=== PATIENT | male | born 1980 | race African-American/Black ===

== ENCOUNTER 2017-09-12 11:43 | Emergency (ER) | payer SELFPAY ==
[2017-09-12 11:53] VITALS: BP 123/73
[2017-09-12] MEDS ORDERED: NORMAL SALINE 1000 ML 1,000 ML IV ONE (12:09)
[2017-09-12] MEDS ORDERED: ONDANSETRON HCL INJ/PF 4 MG/2 ML SDV IV ONE (12:09)
--- NOTE | 2017-09-12 12:11 | ER Document Report ---
ED Medical Screen (RME) - General Chief Complaint: Vomiting Stated Complaint: VOMITING Time Seen by Provider: 09/12/17 12:08 Mode of Arrival: Ambulatory Information source: Patient TRAVEL OUTSIDE OF THE [place] IN LAST 30 DAYS: No - HPI Patient complains to provider of: N/V/D Onset: Yesterday - Pt states child has been sick with gastroenteritis and he recently has started with N/V/D. He states he is unable to keep down food/ fluids - Related Data Allergies/Adverse Reactions: sulfamethoxazole [From Bactrim] Allergy (Verified 09/12/17 11:52) trimethoprim [From Bactrim] Allergy (Verified 09/12/17 11:52) Past Medical History - Social History Chew tobacco use (# tins/day): No Frequency of alcohol use: None Drug Abuse: None - Past Medical History Cardiac Medical History: Reports: Hx Hypertension Endocrine Medical History: Reports: Hx Diabetes Mellitus Type 2 Renal/ Medical History: Denies: Hx Peritoneal Dialysis - Immunizations Immunizations up to date: Yes Hx Diphtheria, Pertussis, Tetanus Vaccination: Yes Physical Exam - Vital signs Vitals: Temp Pulse Resp BP Pulse Ox 98.0 F 74 20 123/73 100 09/12/17 11:52 09/12/17 11:52 09/12/17 11:52 09/12/17 11:52 09/12/17 11:52 Course - Vital Signs Vital signs: Temp Pulse Resp BP Pulse Ox 98.0 F 74 20 123/73 100 09/12/17 11:52 09/12/17 11:52 09/12/17 11:52 09/12/17 11:52 09/12/17 11:52
[2017-09-12 12:28] LABS: ABSOLUTE EOSINOPHILS # (AUTO) 0.1 10^3/uL (0.0-0.6); ABSOLUTE LYMPHOCYTES (AUTO) 1.5 10^3/uL (0.5-4.7); ABSOLUTE MONOCYTES (AUTO) 0.4 10^3/uL (0.1-1.4); ABSOLUTE NEUT (AUTO) 1.6 10^3/uL (1.7-8.2); BASOPHILS % (AUTO) 0.6 % (0-2); EOSINOPHILS % (AUTO) 1.9 % (0-6); HEMATOCRIT 41.1 % (37.9-51.0); HEMOGLOBIN 14.4 g/dL (13.5-17.0); HGB HCT DIFFERENCE 2.1; LYMPHOCYTES % (AUTO) 42.1 % (13-45); MEAN CORPUSCULAR HEMOGLOBIN 31.8 pg (27.0-33.4); MEAN CORPUSCULAR HGB CONC 34.9 g/dL (32.0-36.0); MEAN CORPUSCULAR VOLUME 91 fl (80-97); RED BLOOD COUNT 4.52 10^6/uL (4.35-5.55); RED CELL DISTRIBUTION WIDTH 12.2 % (11.5-14.0); SEGMENTED NEUTROPHILS % (AUTO) 44.4 % (42-78); WHITE BLOOD COUNT 3.5 10^3/uL (4.0-10.5)
[2017-09-12 12:41] LABS: ALANINE AMINOTRANSFERASE 63 U/L (21-72); ALBUMIN 4.4 g/dL (3.5-5.0); ALKALINE PHOSPHATASE 98 U/L (38-126); ANION GAP 13 (5-19); APPEARANCE,URINE CLEAR; ASPARTATE AMINO TRANSFERASE 46 U/L (17-59); BILIRUBIN,DIRECT 0.3 mg/dL (0.0-0.4); BILIRUBIN,TOTAL 0.4 mg/dL (0.2-1.3); BILIRUBIN,URINE NEGATIVE (NEGATIVE); BLOOD UREA NITROGEN 19 mg/dL (7-20); CALCIUM 9.5 mg/dL (8.4-10.2); CARBON DIOXIDE 27 mmol/L (22-30); CHLORIDE 104 mmol/L (98-107); CREATININE RESULT 1.36 mg/dL (0.52-1.25); GLUCOSE 117 mg/dL (75-110); GLUCOSE, URINE NEGATIVE (NEGATIVE); KETONES,URINE NEGATIVE (NEGATIVE); LEUKOCYTE ESTERASE,URINE NEGATIVE (NEGATIVE); NITRITE,URINE NEGATIVE (NEGATIVE); PROTEIN,URINE NEGATIVE (NEGATIVE); SODIUM 144.4 mmol/L (137-145); TOTAL PROTEIN 7.3 g/dL (6.3-8.2); UROBILINOGEN,URINE NEGATIVE mg/dL (<2.0)
--- NOTE | 2017-09-12 13:43 | ER Document Report ---
ED General - General Chief Complaint: Vomiting Stated Complaint: VOMITING Time Seen by Provider: 09/12/17 12:08 Mode of Arrival: Ambulatory Information source: Patient Notes: 36-year-old male presents with complaints of 2 episodes of vomiting as well as multiple episodes of diarrhea. Patient notes his daughter had similar episode a few days ago. Patient denies any fevers or chills notes abdominal cramping which has since resolved. Patient denies any other risk factors TRAVEL OUTSIDE OF THE [place] IN LAST 30 DAYS: No - HPI Onset: Yesterday Onset/Duration: Sudden Quality of pain: Cramping Severity: Mild Pain Level: 1 Associated symptoms: Diarrhea, Nausea, Vomiting Exacerbated by: Denies Relieved by: Denies Similar symptoms previously: No Recently seen / treated by doctor: No - Related Data Allergies/Adverse Reactions: sulfamethoxazole [From Bactrim] Allergy (Verified 09/12/17 11:52) trimethoprim [From Bactrim] Allergy (Verified 09/12/17 11:52) Past Medical History - General Information source: Patient - Social History Smoking Status: Never Smoker Cigarette use (# per day): No Chew tobacco use (# tins/day): No Smoking Education Provided: No Frequency of alcohol use: None Drug Abuse: None Family History: None Patient has suicidal ideation: No Patient has homicidal ideation: No - Past Medical History Cardiac Medical History: Reports: Hx Hypertension Endocrine Medical History: Reports: Hx Diabetes Mellitus Type 2 Renal/ Medical History: Denies: Hx Peritoneal Dialysis - Immunizations Immunizations up to date: Yes Hx Diphtheria, Pertussis, Tetanus Vaccination: Yes Review of Systems - Review of Systems Notes: REVIEW OF SYSTEMS: CONSTITUTIONAL : Denies fever, chills, or sweats. Denies recent illness. EENT: Denies eye, ear, throat, or mouth pain or symptoms. Denies nasal or sinus congestion or discharge. Denies throat, tongue, or mouth swelling or difficulty swallowing. CARDIOVASCULAR: Denies chest pain. Denies palpitations or racing or irregular heart beat. Denies ankle edema. RESPIRATORY: Denies cough, cold, or chest congestion. Denies shortness of breath, difficulty breathing, or wheezing. GASTROINTESTINAL: Admits to abdominal cramping nausea vomiting diarrhea GENITOURINARY: Denies difficulty urinating, painful urination, burning, frequency, blood in urine, or discharge. MUSCULOSKELETAL: Denies back or neck pain or stiffness. Denies joint pain or swelling. SKIN: Denies rash, lesions or sores. HEMATOLOGIC : Denies easy bruising or bleeding. LYMPHATIC: Denies swollen, enlarged glands. NEUROLOGICAL: Denies confusion or altered mental status. Denies passing out or loss of consciousness. Denies dizziness or lightheadedness. Denies headache. Denies weakness or paralysis or loss of use of either side. Denies problems with gait or speech. Denies sensory loss, numbness, or tingling. Denies seizures. PSYCHIATRIC: Denies anxiety or stress. Denies depression, suicidal ideation, or homicidal ideation. ALL OTHER SYSTEMS REVIEWED AND NEGATIVE. Dictation was performed using [employer] voice recognition software PHYSICAL EXAMINATION: GENERAL: Well-appearing, well-nourished and in no acute distress. HEAD: Atraumatic, normocephalic. EYES: Pupils equal round and reactive to light, extraocular movements intact, sclera anicteric, conjunctiva are normal. ENT: Nares patent, oropharynx clear without exudates. Moist mucous membranes. NECK: Normal range of motion, supple without lymphadenopathy LUNGS: Breath sounds clear to auscultation bilaterally and equal. No wheezes rales or rhonchi. HEART: Regular rate and rhythm without murmurs ABDOMEN: Soft, nontender, nondistended abdomen. No guarding, no rebound. No masses appreciated. Musculoskeletal: Normal range of motion, no pitting or edema. No cyanosis. NEUROLOGICAL: Cranial nerves grossly intact. Normal speech, normal gait. Normal sensory, motor exams PSYCH: Normal mood, normal affect. SKIN: Warm, Dry, normal turgor, no rashes or lesions noted. Physical Exam - Vital signs Vitals: Temp Pulse Resp BP Pulse Ox 98.0 F 80 19 123/73 99 09/12/17 11:51 09/12/17 11:51 09/12/17 11:51 09/12/17 11:51 09/12/17 11:51 Course - Re-evaluation Re-evalutation: 09/12/17 15:19 Upon my arrival the patient had already been treated, he states he feels much better has no complaints. A bag of IV fluids were finished. It is noted the patient had a creatinine 1.35 otherwise he looks well is in no distress. Patient will be discharged home with nausea control and Bentyl is otherwise very well-appearing. Patient has been instructed to return immediately if there are any other concerns Patient is very happy with this plan After performing a Medical Screening Examination, I estimate there is LOW risk for ACUTE APPENDICITIS, BOWEL OBSTRUCTION, ACUTE CHOLECYSTITIS, PERFORATED DIVERTICULITIS, INCARCERATED HERNIA, PANCREATITIS, TESTICULAR TORSION or PERFORATED ULCER, thus I consider the discharge disposition reasonable. Also, there is no evidence or peritonitis, sepsis, or toxicity. I have reevaluated this patient multiple times and no significant life threatening changes are noted. The patient and I have discussed the diagnosis and risks, and we agree with discharging home with close follow-up with the understanding that symptoms and presentations can change. We also discussed returning to the Emergency Department immediately if new or worsening symptoms occur. We have discussed the symptoms which are most concerning (e.g., bloody stool, fever, changing or worsening pain, intractable vomiting - standard verbal up date) that necessitate immediate return. - Vital Signs Vital signs: Temp Pulse Resp BP Pulse Ox 98.0 F 74 20 123/73 100 09/12/17 11:52 09/12/17 11:52 09/12/17 11:52 09/12/17 11:52 09/12/17 11:52 - Laboratory Result Diagrams: 09/12/17 12:15 09/12/17 12:15 Laboratory results interpreted by me: 09/12/17 09/12/17 12:15 12:15 WBC 3.5 L Absolute Neutrophils 1.6 L Creatinine 1.36 H Glucose 117 H Discharge - Discharge Clinical Impression: Vomiting Qualifiers: Vomiting type: unspecified Vomiting Intractability: non-intractable Nausea presence: with nausea Qualified Code(s): R11.2 - Nausea with vomiting, unspecified Diarrhea Qualifiers: Diarrhea type: unspecified type Qualified Code(s): R19.7 - Diarrhea, unspecified Abdominal pain Qualifiers: Abdominal location: unspecified location Qualified Code(s): R10.9 - Unspecified abdominal pain Condition: Stable Disposition: HOME, SELF-CARE Instructions: Vomiting ([facility]) Additional Instructions: Follow up with your physician tomorrow for further care or return to the ED IMMEDIATELY if symptoms worsen or new concerns occur. If you cannot afford to follow up with your primary care physician a list of low cost clinics have been provided at the end of your discharge papers as well. Prescriptions: Dicyclomine HCl [Bentyl 20 mg Tablet] 20 mg PO QID #40 tablet Ondansetron [Zofran Odt 4 mg Tablet] 1 - 2 tab PO Q4H PRN #15 tab.rapdis PRN Reason: For Nausea/Vomiting Forms: Return to Work
== END 2017-09-12 13:59 | disposition home or self-care (01) ==
LOC: ER 11:43
DX: R11.2 Nausea with vomiting, unspecified (principal); R19.7 Diarrhea, unspecified; R10.9 Unspecified abdominal pain; E11.9 Type 2 diabetes mellitus without complications; I10 Essential (primary) hypertension; Z88.1 Allergy status to other antibiotic agents
CPT/HCPCS: 99283; 96374; 36415; 85025; 80053; 81001; J2405; J7030; 96361

== ENCOUNTER 2018-02-03 09:45 | Emergency (ER) | payer SELFPAY ==
[2018-02-03] MEDS ORDERED: PROMETHAZINE HCL 25 MG TABLET PO ONE (10:19)
[2018-02-03] MEDS ORDERED: TETRACAINE HCL 0.5% OPH SOLN 2 ML OD ONE (10:19)
[2018-02-03] MEDS ORDERED: FAMOTIDINE 20 MG TABLET PO ONE (10:19)
[2018-02-03] MEDS ORDERED: IBUPROFEN 600 MG TABLET PO ONE (10:19)
[2018-02-03] MEDS ORDERED: ERYTHROMYCIN 0.5% OPH OINT 1 GM UNIT DOSE OD ONE (10:20)
[2018-02-03] MEDS ORDERED: DIPH/PERTUSS(ACELL)/TETANUS VAC/PF 0.5 ML SYR (>=10YO) IM ONE (10:40)
--- NOTE | 2018-02-03 10:48 | ER Document Report ---
ED Foreign Body - General Chief Complaint: Foreign Body in Eye Stated Complaint: EYE ISSUE Time Seen by Provider: 02/03/18 10:11 Notes: 37-year-old male to the emergency department chief complaint of pain in the right eye. Thinks that he got something in his eye. Does not remember when it happened but thinks it might of happened yesterday. Approximately 10 years since last tetanus. No other signs or symptoms. No loss of vision. No blurred vision. Pain is rated as a 2/5 and a numeric pain scale. TRAVEL OUTSIDE OF THE [place] IN LAST 30 DAYS: No - Related Data Allergies/Adverse Reactions: sulfamethoxazole [From Bactrim] Allergy (Verified 02/03/18 09:48) trimethoprim [From Bactrim] Allergy (Verified 02/03/18 09:48) Past Medical History - General Information source: Patient - Social History Smoking Status: Former Smoker Cigarette use (# per day): No Chew tobacco use (# tins/day): No Frequency of alcohol use: Occasional Drug Abuse: None Lives with: Family Family History: None Patient has suicidal ideation: No Patient has homicidal ideation: No - Past Medical History Cardiac Medical History: Reports: Hx Hypertension Endocrine Medical History: Reports: Hx Diabetes Mellitus Type 2 Renal/ Medical History: Denies: Hx Peritoneal Dialysis - Immunizations Immunizations up to date: Yes Hx Diphtheria, Pertussis, Tetanus Vaccination: Yes Review of Systems - Review of Systems Constitutional: denies: Weakness EENT: Eye pain, Eye discharge, Tearing. denies: Double vision, Ear pain, Nose pain, Mouth pain Cardiovascular: denies: Chest pain, Palpitations, Heart racing Respiratory: denies: Cough, Hurts to breathe, Short of breath, Wheezing Skin: denies: Lesions, Lumps, Rash Physical Exam - Vital signs Interpretation: Normal - General General appearance: Appears well, Alert - HEENT Head: Normocephalic, Atraumatic Eyes: Normal Cornea: Embedded foreign body, Other - Is a black dot/foreign body about the size of a period on piece of paper created at the 9 o'clock position just lateral to the iris Pupils: PERRL - Respiratory Respiratory status: No respiratory distress Chest status: Nontender Breath sounds: Normal Chest palpation: Normal - Cardiovascular Rhythm: Regular Heart sounds: Normal auscultation Course - Re-evaluation Re-evalutation: 02/03/18 10:43 Warm body was removed. Antibiotic ointment, tetanus updated. Ibuprofen and Phenergan given. Work note provided. Advised to return if getting worse. 02/03/18 10:44 Procedure note: Foreign body removal After consent was obtained verbally the right eye was prepped with 4 drops of tetracaine. After proper anesthesia was obtained a 22-gauge needle was used to remove a small foreign body at the 9 o'clock position of the iris on the right eye. One more drop of tetracaine was applied. Erythromycin ophthalmic ointment was applied. Patient tolerated procedure well. No complications. Discharge - Discharge Clinical Impression: Intraocular foreign body, right eye Qualifiers: Encounter type: initial encounter Qualified Code(s): S05.51XA - Penetrating wound with foreign body of right eyeball, initial encounter Disposition: HOME, SELF-CARE Instructions: Corneal Foreign Body ([facility]) Additional Instructions: In the event that you have a decrease in vision, worsening pain, worsening redness, blurred vision or any other concerns please return immediately or call an data keyer to have a repeat evaluation performed. Prescriptions: Erythromycin Base [Erythromycin Oph 1 Gm Oint Ud] 1 applic OD QID 5 Days #1 tube Ibuprofen [Motrin 800 mg Tablet] 800 mg PO Q8H PRN #30 tab PRN Reason: Promethazine HCl [Phenergan 25 mg Tablet] 25 mg PO TID 2 Days #6 tablet Forms: Return to Work
[2018-02-03 11:23] VITALS: BP 134/81
== END 2018-02-03 11:25 | disposition home or self-care (01) ==
LOC: ER 09:45
DX: S05.51XA Penetrating wound with foreign body of right eyeball, initial encounter (principal); H57.11 Ocular pain, right eye; X58.XXXA Exposure to other specified factors, initial encounter; I10 Essential (primary) hypertension; E11.9 Type 2 diabetes mellitus without complications; Z88.1 Allergy status to other antibiotic agents; Z87.891 Personal history of nicotine dependence
CPT/HCPCS: 90471; 90715; 99283

== ENCOUNTER 2018-10-05 10:41 | Emergency (ER) | payer OTHER ==
--- NOTE | 2018-10-05 11:06 | ER Document Report ---
ED Medical Screen (RME) - General Chief Complaint: Low Blood Sugar Stated Complaint: BLOOD SUGAR ISSUE Notes: 37-year-old male patient with hypertension, type 2 diabetes on insulin, HIV positive. He reports this morning his told him he was confused when he woke up and blood sugar was in the 20s. She gave him orange juice and Gummies to eat and it brought his sugar up. He states he still feels a little "out of it" now. He is vague about when he takes his Lantus, but it sounds like he was taking it a few hours before bedtime. He does take Lantus and Januvia. He states his CD4 count 2 months ago was a little over 13, and his viral load was undetectable. He is also complaining about left posterior shoulder and arm pain and numbness for the past 2 weeks that he thinks may be due to not going to work out. I have greeted and performed a rapid initial assessment of this patient. A comprehensive ED assessment and evaluation of the patient, analysis of test results and completion of the medical decision making process will be conducted by additional ED providers. TRAVEL OUTSIDE OF THE [place] IN LAST 30 DAYS: No - Related Data Allergies/Adverse Reactions: ibuprofen [From Motrin] Allergy (Verified 10/05/18 10:47) sulfamethoxazole [From Bactrim] Allergy (Verified 10/05/18 10:47) trimethoprim [From Bactrim] Allergy (Verified 10/05/18 10:47) Past Medical History - Past Medical History Cardiac Medical History: Reports: Hx Hypertension Endocrine Medical History: Reports: Hx Diabetes Mellitus Type 2 Renal/ Medical History: Denies: Hx Peritoneal Dialysis - Immunizations Immunizations up to date: Yes Hx Diphtheria, Pertussis, Tetanus Vaccination: Yes Physical Exam - Vital signs Vitals: Temp Pulse Resp BP Pulse Ox 98.1 F 73 16 128/79 H 99 10/05/18 10:51 10/05/18 10:51 10/05/18 10:51 10/05/18 10:51 10/05/18 10:51 Course - Vital Signs Vital signs: Temp Pulse Resp BP Pulse Ox 98.1 F 73 16 128/79 H 99 10/05/18 10:51 10/05/18 10:51 10/05/18 10:51 10/05/18 10:51 10/05/18 10:51 - Laboratory Laboratory results interpreted by me: 10/05/18 10:45 POC Glucose 129 H Doctor's Discharge - Discharge Referrals: LOCALMD,NO [Primary Care Provider] - Follow up as needed
[2018-10-05 11:40] LABS: APPEARANCE,URINE SLIGHTLY-CLOUDY; BILIRUBIN,URINE NEGATIVE (NEGATIVE); COLOR,URINE YELLOW; GLUCOSE, URINE NEGATIVE (NEGATIVE); KETONES,URINE NEGATIVE (NEGATIVE); LEUKOCYTE ESTERASE,URINE NEGATIVE (NEGATIVE); NITRITE,URINE NEGATIVE (NEGATIVE); PROTEIN,URINE 100 mg/dL (NEGATIVE)
[2018-10-05 11:43] LABS: ABSOLUTE EOSINOPHILS # (AUTO) 0.1 10^3/uL (0.0-0.6); ABSOLUTE LYMPHOCYTES (AUTO) 1.8 10^3/uL (0.5-4.7); ABSOLUTE MONOCYTES (AUTO) 0.4 10^3/uL (0.1-1.4); BASOPHILS % (AUTO) 0.5 % (0-2); EOSINOPHILS % (AUTO) 2.8 % (0-6); HEMATOCRIT 45.6 % (37.9-51.0); HEMOGLOBIN 15.5 g/dL (13.5-17.0); LYMPHOCYTES % (AUTO) 40.6 % (13-45); MEAN CORPUSCULAR HEMOGLOBIN 31.6 pg (27.0-33.4); MEAN CORPUSCULAR HGB CONC 33.9 g/dL (32.0-36.0); MEAN CORPUSCULAR VOLUME 93 fl (80-97); MONOCYTES % (AUTO) 9.8 % (3-13); PLATELET COUNT 271 10^3/uL (150-450); RED BLOOD COUNT 4.89 10^6/uL (4.35-5.55); RED CELL DISTRIBUTION WIDTH 12.4 % (11.5-14.0); SEGMENTED NEUTROPHILS % (AUTO) 46.3 % (42-78); TOTAL CELLS COUNTED % (AUTO) 100 %; WHITE BLOOD COUNT 4.4 10^3/uL (4.0-10.5)
[2018-10-05 11:54] LABS: ALANINE AMINOTRANSFERASE 30 U/L (21-72); ALBUMIN 4.6 g/dL (3.5-5.0); ALKALINE PHOSPHATASE 94 U/L (38-126); ANION GAP 11 (5-19); ASPARTATE AMINO TRANSFERASE 26 U/L (17-59); BILIRUBIN,DIRECT 0.3 mg/dL (0.0-0.4); BILIRUBIN,TOTAL 0.5 mg/dL (0.2-1.3); BLOOD UREA NITROGEN 11 mg/dL (7-20); CALCIUM 10.1 mg/dL (8.4-10.2); CARBON DIOXIDE 31 mmol/L (22-30); CHLORIDE 102 mmol/L (98-107); GLUCOSE 131 mg/dL (75-110); POTASSIUM 4.5 mmol/L (3.6-5.0); SODIUM 144.2 mmol/L (137-145); TOTAL PROTEIN 7.8 g/dL (6.3-8.2)
--- NOTE | 2018-10-05 12:40 | ER Document Report ---
ED General - General Chief Complaint: Low Blood Sugar Stated Complaint: BLOOD SUGAR ISSUE Time Seen by Provider: 10/05/18 11:06 TRAVEL OUTSIDE OF THE [place] IN LAST 30 DAYS: No - HPI Patient complains to provider of: Low blood sugar neck pain Notes: Patient coming in for hypoglycemia. Patient was found with a sugar approximately 20 earlier this morning. Patient states more likely took his insulin too late last night that is why he was hypoglycemic. Patient also states a history of HIV with CD4 count of 1300 states his viral load was undetectable upon last testing. Denies any fevers chills nausea vomiting diarrhea denies any changes in medication regimen recently. Patient also complaining of chronic neck pain. Patient states intermittent over the last few weeks. Denies any trauma denies any MVC's denies any assault. Patient states will randomly hurt causing pain down left arm with some mild numbness and tingling that will also spontaneously resolved. Patient denies having any imaging of his neck - Related Data Allergies/Adverse Reactions: ibuprofen [From Motrin] Allergy (Verified 10/05/18 10:47) sulfamethoxazole [From Bactrim] Allergy (Verified 10/05/18 10:47) trimethoprim [From Bactrim] Allergy (Verified 10/05/18 10:47) Past Medical History - Social History Smoking Status: Current Some Day Smoker Frequency of alcohol use: None Drug Abuse: None Family History: None Patient has suicidal ideation: No Patient has homicidal ideation: No - Past Medical History Cardiac Medical History: Reports: Hx Hypertension Endocrine Medical History: Reports: Hx Diabetes Mellitus Type 2 Renal/ Medical History: Denies: Hx Peritoneal Dialysis - Immunizations Immunizations up to date: Yes Hx Diphtheria, Pertussis, Tetanus Vaccination: Yes Review of Systems - Review of Systems Constitutional: Other - Hypoglycemia neck pain EENT: No symptoms reported Cardiovascular: No symptoms reported Respiratory: No symptoms reported Gastrointestinal: No symptoms reported Genitourinary: No symptoms reported Male Genitourinary: No symptoms reported Musculoskeletal: No symptoms reported Skin: No symptoms reported Hematologic/Lymphatic: No symptoms reported Neurological/Psychological: No symptoms reported Physical Exam - Vital signs Vitals: Temp Pulse Resp BP Pulse Ox 98.1 F 73 16 128/79 H 99 10/05/18 10:51 10/05/18 10:51 10/05/18 10:51 10/05/18 10:51 10/05/18 10:51 Interpretation: Normal - General General appearance: Appears well, Alert - HEENT Head: Normocephalic, Atraumatic Eyes: Normal Pupils: PERRL Neck: Normal. No: Brudzinski, Lymphadenopathy, Meningismus - Respiratory Respiratory status: No respiratory distress Chest status: Nontender Breath sounds: Normal Chest palpation: Normal - Cardiovascular Rhythm: Regular Heart sounds: Normal auscultation Murmur: No - Abdominal Inspection: Normal Distension: No distension Bowel sounds: Normal Tenderness: Nontender Organomegaly: No organomegaly - Back Back: Normal, Nontender - Extremities General upper extremity: Normal inspection, Nontender, Normal color, Normal ROM , Normal temperature General lower extremity: Normal inspection, Nontender, Normal color, Normal ROM , Normal temperature, Normal weight bearing. No: Ten's sign - Neurological Neuro grossly intact: Yes Cognition: Normal Orientation: AAOx4 [place] Coma Scale Eye Opening: Spontaneous [place] Coma Scale Verbal: Oriented [place] Coma Scale Motor: Obeys Commands [place] Coma Scale Total: 15 Speech: Normal Motor strength normal: LUE, RUE, LLE, RLE Sensory: Normal - Psychological Associated symptoms: Normal affect, Normal mood - Skin Skin Temperature: Warm Skin Moisture: Dry Skin Color: Normal Course - Re-evaluation Re-evalutation: 10/05/18 15:39 No critical pathology found on examination of the patient's nose. Patient with no history of trauma will have low yield on x-rays recommend follow-up PCP for further evaluation. Patient's blood sugar remained normal while here in the ER. Recommend continue with his insulin and diabetic medications also to continue with HIV medications. Recommended compliance for his taking insulin the same time during the day. - Vital Signs Vital signs: Temp Pulse Resp BP Pulse Ox 98.3 F 78 18 132/84 H 99 10/05/18 13:00 10/05/18 13:00 10/05/18 13:00 10/05/18 13:00 10/05/18 13:00 - Laboratory Result Diagrams: 10/05/18 11:15 10/05/18 11:15 Laboratory results interpreted by me: 10/05/18 10/05/18 10/05/18 10:45 11:15 11:15 Carbon Dioxide 31 H Glucose 131 H POC Glucose 129 H Hemoglobin A1c % 9.3 H Urine Protein Urine Blood Urine Urobilinogen 10/05/18 10/05/18 11:15 12:29 Carbon Dioxide Glucose POC Glucose 127 H Hemoglobin A1c % Urine Protein 100 H Urine Blood SMALL H Urine Urobilinogen 2.0 H Discharge - Discharge Clinical Impression: Diabetes type I, HIV (human immunodeficiency virus infection), hypoglycemia resolved, Neck pain Condition: Good Disposition: HOME, SELF-CARE Instructions: Diabetes ([facility]), Hypoglycemia Diet ([facility]), Hypoglycemia ([facility]), Neck Injury (Cervical Strain) ([facility]) Additional Instructions: Your evaluation does not show any signs of significant pathology. I would highly recommend she follow-up with your primary care physician return to the ER symptoms worsen. At this time physical examination not reveal any significant pathology for your neck pain. I would highly recommend that he follow-up with your primary care physician for further testing. I recommend Tylenol Motrin for pain control. Forms: Return to School Referrals: LOCALMD,NO [NO LOCAL MD] - Follow up as needed
[2018-10-05 13:12] VITALS: BP 132/84
== END 2018-10-05 13:00 | disposition home or self-care (01) ==
LOC: ER 10:41
DX: E10.649 Type 1 diabetes mellitus with hypoglycemia without coma (principal); B20 Human immunodeficiency virus [HIV] disease; M54.2 Cervicalgia; G89.29 Other chronic pain; Z79.4 Long term (current) use of insulin; F17.200 Nicotine dependence, unspecified, uncomplicated
CPT/HCPCS: 36415; 80053; 81001; 82962; 83036; 85025; 99283

== ENCOUNTER 2018-12-01 04:52 | Emergency (ER) | payer OTHER ==
--- NOTE | 2018-12-01 06:11 | ER Document Report ---
ED General - General Chief Complaint: Toe Injury Stated Complaint: TOE INJURY Time Seen by Provider: 12/01/18 06:10 Notes: Patient is a 38-year-old male that presents to the emergency department for chief complaint of right 5th toe injury. Patient states he injured his toe around 5 AM this morning walking around the house, describes the pain as a 7 out of 10, describes as a constant aching sensation in the right toe. Denies any pain in the ankle, or falling or any other injury. Denies any numbness, tingling or weakness. No other complaints. Past Medical History: Diabetes, hypertension Past Surgical History: Denies surgical history Social History: Denies smoking, admits to occasional alcohol use, denies illicit drug use. Family History: Reviewed and noncontributory for presenting illness Allergies: Reviewed, see documented allergy list. REVIEW OF SYSTEMS: Other than noted above, the 12 point review of systems was reviewed with the patient and were negative, all pertinent findings are included in the HPI. PHYSICAL EXAMINATION: Vital signs reviewed, nursing noted reviewed. GENERAL: Well-appearing, well-nourished and in no acute distress. HEAD: Atraumatic, normocephalic. EYES: Eyes appear normal, sclera anicteric, conjunctiva are normal. ENT: Moist mucous membranes. NECK: Normal range of motion, supple without lymphadenopathy LUNGS: Breath sounds clear to auscultation bilaterally and equal. No wheezes rales or rhonchi. HEART: Regular rate and rhythm without murmurs EXTREMITIES: Tenderness to palpation to the fifth digit of the right foot, without deformity, ecchymosis, or edema. No tenderness over the head of the fifth metatarsal, no ankle tenderness, good range of motion of all digits, cap refill less than 3 seconds, the rest of his extremity exam was grossly unremarkable, and nontender, good range of motion, no pitting or edema. NEUROLOGICAL: No focal neurological deficits. Moves all extremities spontaneously Motor and sensory grossly intact on exam. PSYCH: Normal mood, normal affect. SKIN: Warm, Dry, normal turgor, no rashes or lesions noted on exposed skin TRAVEL OUTSIDE OF THE [place] IN LAST 30 DAYS: No - Related Data Allergies/Adverse Reactions: ibuprofen [From Motrin] Allergy (Verified 10/05/18 10:47) sulfamethoxazole [From Bactrim] Allergy (Verified 10/05/18 10:47) trimethoprim [From Bactrim] Allergy (Verified 10/05/18 10:47) Past Medical History - Social History Smoking Status: Never Smoker Chew tobacco use (# tins/day): No Frequency of alcohol use: Occasional Drug Abuse: None Family History: None Patient has suicidal ideation: No Patient has homicidal ideation: No - Past Medical History Cardiac Medical History: Reports: Hx Hypertension Endocrine Medical History: Reports: Hx Diabetes Mellitus Type 2 Renal/ Medical History: Denies: Hx Peritoneal Dialysis - Immunizations Immunizations up to date: Yes Hx Diphtheria, Pertussis, Tetanus Vaccination: Yes Physical Exam - Vital signs Vitals: Temp Pulse Resp BP Pulse Ox 98.0 F 77 20 136/84 H 99 12/01/18 04:56 12/01/18 04:56 12/01/18 04:56 12/01/18 04:56 12/01/18 04:56 Course - Re-evaluation Re-evalutation: Patient seen and examined, vital signs reviewed, x-rays obtained of the toe, were negative for fracture, his exam was unremarkable, with exception tenderness to palpation, patient advised of results, given Motrin to take at home for pain, advised ice therapy and rest. Patient agreeable to plan of care and discharged home. - Vital Signs Vital signs: Temp Pulse Resp BP Pulse Ox 98.1 F 74 16 131/94 H 99 12/01/18 07:30 12/01/18 07:30 12/01/18 07:30 12/01/18 07:30 12/01/18 07:30 Discharge - Discharge Clinical Impression: Injury of right toe Qualifiers: Encounter type: initial encounter Qualified Code(s): S99.921A - Unspecified injury of right foot, initial encounter Condition: Stable Disposition: HOME, SELF-CARE Instructions: Stubbed Toe ([facility]) Additional Instructions: Please use ice or warm compresses to help with your pain, you can take Tylenol, 2 extra strength tablets 3 times daily to help with your pain. There is no broken bones, no fracture is noted on your x-rays. Forms: Return to Work Referrals: [facility] [Provider Group] - Follow up in 3-5 days
[2018-12-01] MEDS ORDERED: ACETAMINOPHEN 325 MG TABLET PO ONE (06:37)
[2018-12-01 07:32] VITALS: BP 131/94
--- NOTE | 2018-12-01 07:47 | RADIOLOGY REPORT (SQ) ---
CLINICAL DATA: 38-year-old male who kicked grayscale and complains of right fifth toe pain TECHNICAL DATA: Three x-ray views of the right fifth toe were performed on 12/01/2018 at 7:02 AM. COMPARISONS: None FINDINGS: There is no evidence of fracture or dislocation. There is no significant arthritis or degenerative change. No focal lytic or sclerotic bone lesions are seen. Bone mineralization is normal No focal soft tissue abnormalities are identified. IMPRESSION: No evidence of acute osseous injury involving the right fifth toe.
== END 2018-12-01 07:30 | disposition home or self-care (01) ==
LOC: ER 04:52
DX: S99.921A Unspecified injury of right foot, initial encounter (principal); M79.674 Pain in right toe(s); X58.XXXA Exposure to other specified factors, initial encounter; Y92.009 Unspecified place in unspecified non-institutional (private) residence as the place of occurrence of the external cause; E11.9 Type 2 diabetes mellitus without complications; I10 Essential (primary) hypertension
CPT/HCPCS: 99283

== ENCOUNTER 2019-02-05 08:48 | Emergency (ER) | payer OTHER ==
[2019-02-05] MEDS ORDERED: ACETAMINOPHEN 325 MG TABLET PO ONE (10:17)
--- NOTE | 2019-02-05 10:17 | ER Document Report ---
ED Medical Screen (RME) - General Chief Complaint: Headache Stated Complaint: HEADACHE Time Seen by Provider: 02/05/19 10:08 TRAVEL OUTSIDE OF THE [place] IN LAST 30 DAYS: No - Related Data Allergies/Adverse Reactions: ibuprofen [From Motrin] Allergy (Verified 10/05/18 10:47) sulfamethoxazole [From Bactrim] Allergy (Verified 10/05/18 10:47) trimethoprim [From Bactrim] Allergy (Verified 10/05/18 10:47) Past Medical History - Past Medical History Cardiac Medical History: Reports: Hx Hypertension Endocrine Medical History: Reports: Hx Diabetes Mellitus Type 2 Renal/ Medical History: Denies: Hx Peritoneal Dialysis - Immunizations Immunizations up to date: Yes Hx Diphtheria, Pertussis, Tetanus Vaccination: Yes Physical Exam - Vital signs Vitals: Temp Pulse Resp BP Pulse Ox 98.2 F 72 16 147/92 H 99 02/05/19 09:02 02/05/19 09:02 02/05/19 09:02 02/05/19 09:02 02/05/19 09:02 Course - Vital Signs Vital signs: Temp Pulse Resp BP Pulse Ox 98.2 F 72 16 147/92 H 99 02/05/19 09:02 02/05/19 09:02 02/05/19 09:02 02/05/19 09:02 02/05/19 09:02
--- NOTE | 2019-02-05 10:22 | ER Document Report ---
ED General - General Chief Complaint: Headache Stated Complaint: HEADACHE Time Seen by Provider: 02/05/19 10:08 TRAVEL OUTSIDE OF THE [place] IN LAST 30 DAYS: No - HPI Notes: Patient is a 38-year-old male that presents to the emergency department for chief complaint of hyperglycemia and headache. Patient reports blood glucose levels of around 200 at home. He states he saw his primary care provider last week and they did increase his insulin. His hemoglobin A1c was 9 last week. Patient states he has not been eating a good diabetic diet and has been having carbohydrates. He states he has had a mild diffuse headache that has been intermittent in nature over the last few weeks. Today the headache is throbbing in nature. He denies associated photophobia, phonophobia, vision changes, numbness and weakness. Patient denies any chest pain, shortness of breath, nausea, vomiting, fevers, chills and abdominal pain. He states that he was concerned that his blood sugar may be too high which is the main reason he came to the ER today. Past Medical History: Diabetes, hypertension Past Surgical History: Negative Social History: Denies drugs alcohol tobacco Family History: Reviewed and noncontributory for presenting illness Allergies: Reviewed, see documented allergy list. REVIEW OF SYSTEMS: CONSTITUTIONAL : No fever No chills No diaphoresis No recent illness EENT: No vision changes No congestion No sore throat CARDIOVASCULAR: No chest pain No palpitations RESPIRATORY: No shortness of breath No cough No difficulty breathing GASTROINTESTINAL: No abdominal pain No nausea No vomiting No diarrhea GENITOURINARY: No dysuria No hematuria No difficulty urinating MUSCULOSKELETAL: No back pain No leg pain No arm pain SKIN: No rashes No lesions LYMPHATIC: No swollen, enlarged glands. NEUROLOGICAL: No lightheadedness headache No weakness No paresthesias PSYCHIATRIC: No anxiety No depression PHYSICAL EXAMINATION: Vital signs reviewed, nursing noted reviewed. GENERAL: Well-appearing, well-nourished and in no acute distress. HEAD: Atraumatic, normocephalic. EYES: Eyes appear normal, extraocular movements intact, sclera anicteric, conjunctiva are normal. ENT: nares patent, oropharynx clear without exudates. Moist mucous membranes. NECK: Normal range of motion, supple without lymphadenopathy LUNGS: Breath sounds clear to auscultation bilaterally and equal. No wheezes rales or rhonchi. HEART: Regular rate and rhythm without murmurs ABDOMEN: Soft, nontender, normoactive bowel sounds. No rebound, guarding, or rigidity. No masses appreciated. EXTREMITIES: Nontender, good range of motion, no pitting or edema. NEUROLOGICAL: No focal neurological deficits. Moves all extremities spontaneously Motor and sensory grossly intact on exam. PSYCH: Normal mood, normal affect. SKIN: Warm, Dry, normal turgor, no rashes or lesions noted on exposed skin - Related Data Allergies/Adverse Reactions: ibuprofen [From Motrin] Allergy (Verified 10/05/18 10:47) sulfamethoxazole [From Bactrim] Allergy (Verified 10/05/18 10:47) trimethoprim [From Bactrim] Allergy (Verified 10/05/18 10:47) Past Medical History - Social History Smoking Status: Unknown if Ever Smoked Family History: None - Past Medical History Cardiac Medical History: Reports: Hx Hypertension Endocrine Medical History: Reports: Hx Diabetes Mellitus Type 2 Renal/ Medical History: Denies: Hx Peritoneal Dialysis - Immunizations Immunizations up to date: Yes Hx Diphtheria, Pertussis, Tetanus Vaccination: Yes Physical Exam - Vital signs Vitals: Temp Pulse Resp BP Pulse Ox 98.2 F 72 16 147/92 H 99 02/05/19 09:02 02/05/19 09:02 02/05/19 09:02 02/05/19 09:02 02/05/19 09:02 Course - Re-evaluation Re-evalutation: 02/05/19 10:19 Vitals reviewed. Nursing notes reviewed. Patient is afebrile and nontoxic in appearance. He has no focal neurologic deficits and is able to ambulate without difficulty. [id number] glucose is 230 which correlates with his home averages and his hemoglobin A1c of 9. I did disability counselor him at length on diabetic diet as well as checking his blood glucose at home in the morning and at night as previously directed. He will call his primary care provider today for insulin recommendations and to establish close follow-up. He was given a dose of Tylenol for his headache today. His headache has been intermittent and is mild with gradual onset. I do not suspect intracranial hemorrhage or meningitis. Patient is in agreement with this plan of care and stable at discharge. - Vital Signs Vital signs: Temp Pulse Resp BP Pulse Ox 98.2 F 72 16 147/92 H 99 02/05/19 09:02 02/05/19 09:02 02/05/19 09:02 02/05/19 09:02 02/05/19 09:02 Discharge - Discharge Clinical Impression: Hyperglycemia Cephalgia Qualifiers: Headache type: unspecified Headache chronicity pattern: acute headache Intractability: not intractable Qualified Code(s): R51 - Headache Condition: Stable Disposition: HOME, SELF-CARE Instructions: Headache ([facility]), Diabetes ([facility]) Additional Instructions: Please return to the emergency department if you have any worsening, or concern of your symptoms. Please return to the emergency department if you develop chest pain, difficulty breathing, severe abdominal pain, or ongoing vomiting. Please follow-up with your primary care physician in 2-3 days and any other recommended physicians. If prescribed, take all medications as directed. If you have any questions or concerns do not hesitate to return the emergency department for evaluation. Forms: Return to Work
[2019-02-05 10:42] VITALS: BP 134/84
== END 2019-02-05 10:42 | disposition home or self-care (01) ==
LOC: ER 08:48
DX: E11.65 Type 2 diabetes mellitus with hyperglycemia (principal); R51 Headache; Z79.4 Long term (current) use of insulin; I10 Essential (primary) hypertension
CPT/HCPCS: 82962; 99284

== ENCOUNTER 2019-03-16 08:03 | Emergency (ER) | payer OTHER ==
[2019-03-16] MEDS ORDERED: ONDANSETRON HCL INJ/PF 4 MG/2 ML SDV IV ONE (08:55)
[2019-03-16] MEDS ORDERED: DICYCLOMINE HCL INJ 20 MG/2 ML AMPULE IM ONE (08:55)
[2019-03-16] MEDS ORDERED: NORMAL SALINE 1000 ML 1,000 ML IV ONE (08:55)
[2019-03-16 09:08] LABS: ABSOLUTE EOSINOPHILS # (AUTO) 0.2 10^3/uL (0.0-0.6); ABSOLUTE LYMPHOCYTES (AUTO) 0.5 10^3/uL (0.5-4.7); ABSOLUTE MONOCYTES (AUTO) 0.5 10^3/uL (0.1-1.4); ABSOLUTE NEUT (AUTO) 4.7 10^3/uL (1.7-8.2); BASOPHILS % (AUTO) 0.3 % (0-2); HEMATOCRIT 45.8 % (37.9-51.0); HEMOGLOBIN 15.9 g/dL (13.5-17.0); LYMPHOCYTES % (AUTO) 9.3 % (13-45); MEAN CORPUSCULAR HGB CONC 34.7 g/dL (32.0-36.0); MEAN CORPUSCULAR VOLUME 92 fl (80-97); MONOCYTES % (AUTO) 7.7 % (3-13); PLATELET COUNT 230 10^3/uL (150-450); RED BLOOD COUNT 4.96 10^6/uL (4.35-5.55); RED CELL DISTRIBUTION WIDTH 12.4 % (11.5-14.0); SEGMENTED NEUTROPHILS % (AUTO) 79.7 % (42-78); TOTAL CELLS COUNTED % (AUTO) 100 %; WHITE BLOOD COUNT 5.9 10^3/uL (4.0-10.5)
[2019-03-16 09:48] LABS: ALANINE AMINOTRANSFERASE 43 U/L (21-72); ALBUMIN 4.2 g/dL (3.5-5.0); ALKALINE PHOSPHATASE 101 U/L (38-126); ANION GAP 8 (5-19); ASPARTATE AMINO TRANSFERASE 59 U/L (17-59); BILIRUBIN,DIRECT 0.2 mg/dL (0.0-0.4); BILIRUBIN,TOTAL 0.5 mg/dL (0.2-1.3); BLOOD UREA NITROGEN 17 mg/dL (7-20); CALCIUM 9.7 mg/dL (8.4-10.2); CARBON DIOXIDE 29 mmol/L (22-30); CHLORIDE 102 mmol/L (98-107); GLUCOSE 257 mg/dL (75-110); LIPASE 166.5 U/L (23-300); SODIUM 139.1 mmol/L (137-145); TOTAL PROTEIN 7.5 g/dL (6.3-8.2)
[2019-03-16 09:48] LABS: APPEARANCE,URINE CLEAR; BILIRUBIN,URINE NEGATIVE (NEGATIVE); COLOR,URINE YELLOW; GLUCOSE, URINE 150 mg/dL (NEGATIVE); KETONES,URINE NEGATIVE (NEGATIVE); LEUKOCYTE ESTERASE,URINE TRACE (NEGATIVE); NITRITE,URINE NEGATIVE (NEGATIVE); PROTEIN,URINE 100 mg/dL (NEGATIVE); URINE SPECIFIC GRAVITY 1.032; UROBILINOGEN,URINE NEGATIVE mg/dL (<2.0)
--- NOTE | 2019-03-16 10:38 | ER Document Report ---
ED General - General Chief Complaint: Nausea/Vomiting/Diarrhea Stated Complaint: VOMITING Time Seen by Provider: 03/16/19 08:47 TRAVEL OUTSIDE OF THE [place] IN LAST 30 DAYS: No - HPI Notes: Patient is a 38-year-old male who presents to the emergency department for nausea, vomiting, diarrhea. Symptoms all started in the early hours of this morning. He states he has had some cramping abdominal pain that is intermittent in nature. No fevers or chills. His emesis is nonbloody, nonbilious. No blood in his stool. No recent abnormal travel, antibiotic therapy, or drinking well water. - Related Data Allergies/Adverse Reactions: ibuprofen [From Motrin] Allergy (Verified 10/05/18 10:47) sulfamethoxazole [From Bactrim] Allergy (Verified 10/05/18 10:47) trimethoprim [From Bactrim] Allergy (Verified 10/05/18 10:47) Past Medical History - General Information source: Patient - Social History Smoking Status: Current Some Day Smoker Frequency of alcohol use: Occasional Drug Abuse: None Family History: None Patient has suicidal ideation: No Patient has homicidal ideation: No - Past Medical History Cardiac Medical History: Reports: Hx Hypertension Endocrine Medical History: Reports: Hx Diabetes Mellitus Type 2 Renal/ Medical History: Denies: Hx Peritoneal Dialysis - Immunizations Immunizations up to date: Yes Hx Diphtheria, Pertussis, Tetanus Vaccination: Yes Review of Systems - Review of Systems Constitutional: No symptoms reported EENT: No symptoms reported Cardiovascular: No symptoms reported Respiratory: No symptoms reported Gastrointestinal: See HPI Genitourinary: No symptoms reported Musculoskeletal: No symptoms reported Skin: No symptoms reported Neurological/Psychological: No symptoms reported Physical Exam - Vital signs Vitals: Temp Pulse Resp BP Pulse Ox 97.6 F 85 18 123/89 H 98 03/16/19 08:08 03/16/19 08:08 03/16/19 08:08 03/16/19 08:08 03/16/19 08:08 - Notes Notes: Vital signs reviewed, please refer to chart. Patient is normocephalic, a traumatic. Pupils equal round, reactive to light. Neck is supple without meningismus. Heart is regular rate and rhythm. Lungs are clear to auscultation bilaterally. Abdomen is soft, nontender, normoactive bowel sounds throughout. Extremities without cyanosis, clubbing, edema. Peripheral pulses are equal. Skin is warm and dry. Patient is awake, alert, neurological exam is nonfocal. Course - Re-evaluation Re-evalutation: 03/16/19 10:38 Patient presented to the emergency department for evaluation of abdominal pain, nausea, vomiting, diarrhea. No significant tenderness on exam, serial abdominal exams are benign. Patient had no emesis or diarrhea while here. Laboratory investigations were unremarkable. We will send him home with antiemetics. He is counseled to try to avoid taking antidiarrheal medications if possible. He is to start with clear liquids, advance slowly to bland diet. Follow-up with primary care, return to the emergency department with worsening or new concerning symptoms. - Vital Signs Vital signs: Temp Pulse Resp BP Pulse Ox 97.6 F 85 18 123/89 H 98 03/16/19 08:08 03/16/19 08:08 03/16/19 08:08 03/16/19 08:08 03/16/19 08:08 - Laboratory Result Diagrams: 03/16/19 08:55 03/16/19 08:55 Laboratory results interpreted by me: 03/16/19 03/16/19 03/16/19 08:20 08:55 08:55 Seg Neutrophils % 79.7 H Lymphocytes % 9.3 L Glucose 257 H Urine Protein 100 H Urine Glucose (UA) 150 H Ur Leukocyte Esterase TRACE H Discharge - Discharge Clinical Impression: Nausea and vomiting, Diarrhea Abdominal pain Qualifiers: Abdominal location: generalized Qualified Code(s): R10.84 - Generalized abdominal pain Condition: Stable Disposition: HOME, SELF-CARE Instructions: Abdominal Pain ([facility]), Vomiting ([facility]), Diarrhea, Nonspecific ([facility]) Additional Instructions: Rest, stay well-hydrated. Take Zofran as needed for nausea. Advance slowly from clear liquids to bland diet only. Follow-up with your doctor this week. Return to the emergency department with worsening or new concerning symptoms.
[2019-03-16 10:50] VITALS: BP 134/91
== END 2019-03-16 11:05 | disposition home or self-care (01) ==
LOC: ER 08:03
DX: R10.84 Generalized abdominal pain (principal); R11.2 Nausea with vomiting, unspecified; R19.7 Diarrhea, unspecified; F17.200 Nicotine dependence, unspecified, uncomplicated; I10 Essential (primary) hypertension; E11.9 Type 2 diabetes mellitus without complications
CPT/HCPCS: 99284; 96372; 96361; 96374; 36415; 87086; 83690; 85025; 80053; 81001; J0500; J2405; J7030

== ENCOUNTER 2020-11-20 09:24 | Emergency (ER) | payer OTHER ==
[2020-11-20 09:37] VITALS: BP 128/69
--- NOTE | 2020-11-20 10:51 | ER Document Report ---
ED Medical Screen (RME) - General Chief Complaint: Knee Injury Stated Complaint: KNEE PAIN Time Seen by Provider: 11/20/20 10:45 Mode of Arrival: Ambulatory Information source: Patient Notes: 40-year-old male presented to ED for complaint of pain to the right knee. He states he hit it with a hammer on [place] accidentally. He states his pain is a level 2 at this time it was a level 5 at 1 point now it is just achy. He does have a history of diabetes type 2 and high blood pressure. He states he does not smoke occasionally drinks and does use marijuana cans. Constitutional: Negative for fever. HENT: Negative for sore throat. Eyes: Negative for visual changes. Cardiovascular: Negative for chest pain. Respiratory: Negative for shortness of breath. Gastrointestinal: Negative for abdominal pain, vomiting or diarrhea. Genitourinary: Negative for dysuria. Musculoskeletal: Negative for back pain. He has full range of motion to the right knee but does states he has pain right below the knee into the knee. He is able to walk with a limp Skin: Negative for rash. Neurological: Negative for headaches, weakness or numbness. 10 point ROS negative except as marked above and in HPI. PHYSICAL EXAMINATION: GENERAL: Well-appearing, well-nourished and in no acute distress. HEAD: Atraumatic, normocephalic. EYES: Pupils equal round extraocular movements intact, conjunctiva are normal. ENT: Nares patent NECK: Normal range of motion LUNGS: No respiratory distress Musculoskeletal: Normal range of motion and is to palpation and bruising just below the right knee NEUROLOGICAL: Normal speech, normal gait. PSYCH: Normal mood, normal affect. SKIN: Tenderness ecchymosis to the right knee TRAVEL OUTSIDE OF THE [place] IN LAST 30 DAYS: No - HPI Onset: Other - [place] Onset/Duration: Intermittent, Better Quality of pain: [place] Severity: Moderate Pain Level: 1 Associated Symptoms: Other - Pain to right knee Exacerbated by: Movement, Walking Relieved by: Denies Similar symptoms previously: Yes Recently seen / treated by doctor: No - Related Data Smoking: Non-smoker Frequency of alcohol use: Occasional Drug Abuse: Marijuana Allergies/Adverse Reactions: ibuprofen [From Motrin] Allergy (Verified 10/05/18 10:47) sulfamethoxazole [From Bactrim] Allergy (Verified 10/05/18 10:47) trimethoprim [From Bactrim] Allergy (Verified 10/05/18 10:47) Past Medical History - Past Medical History Cardiac Medical History: Reports: Hx Hypertension Endocrine Medical History: Reports: Hx Diabetes Mellitus Type 2 Renal/ Medical History: Denies: Hx Peritoneal Dialysis - Immunizations Immunizations up to date: Yes Hx Diphtheria, Pertussis, Tetanus Vaccination: Yes Physical Exam - Vital signs Vitals: Temp Pulse Resp BP Pulse Ox 98.2 F 76 16 128/69 H 100 11/20/20 09:34 11/20/20 09:34 11/20/20 09:34 11/20/20 09:34 11/20/20 09:34 Course - Vital Signs Vital signs: Temp Pulse Resp BP Pulse Ox 98.2 F 76 16 128/69 H 100 11/20/20 09:34 11/20/20 09:34 11/20/20 09:34 11/20/20 09:34 11/20/20 09:34
--- NOTE | 2020-11-20 10:53 | ER Document Report ---
ED Extremity Problem, Lower - General Chief Complaint: Knee Injury Stated Complaint: KNEE PAIN Time Seen by Provider: 11/20/20 10:45 Primary Care Provider: ETHEL MAYO DO [ACTIVE STAFF] - Follow up as needed Mode of Arrival: Ambulatory Notes: 40-year-old male presented to ED for complaint of pain to the right knee. He states he hit it with a hammer on [place] [address] accidentally. He states his pain is a level 2 at this time it was a level 5 at 1 point now it is just achy. He does have a history of diabetes type 2 and high blood pressure. He states he does not smoke occasionally drinks and does use marijuana cans. Constitutional: Negative for fever. HENT: Negative for sore throat. Eyes: Negative for visual changes. Cardiovascular: Negative for chest pain. Respiratory: Negative for shortness of breath. Gastrointestinal: Negative for abdominal pain, vomiting or diarrhea. Genitourinary: Negative for dysuria. Musculoskeletal: Negative for back pain. He has full range of motion to the right knee but does states he has pain right below the knee into the knee. He is able to walk with a limp Skin: Negative for rash. Neurological: Negative for headaches, weakness or numbness. 10 point ROS negative except as marked above and in HPI. PHYSICAL EXAMINATION: GENERAL: Well-appearing, well-nourished and in no acute distress. HEAD: Atraumatic, normocephalic. EYES: Pupils equal round extraocular movements intact, conjunctiva are normal. ENT: Nares patent NECK: Normal range of motion LUNGS: No respiratory distress Musculoskeletal: Normal range of motion and is to palpation and bruising just below the right knee NEUROLOGICAL: Normal speech, normal gait. PSYCH: Normal mood, normal affect. SKIN: Tenderness ecchymosis to the right knee TRAVEL OUTSIDE OF THE [place] IN LAST 30 DAYS: No - HPI Patient complains to provider of: Injury, Pain, Swelling Location: Knee - Right Occurred: Other - Dismissive Where: Home Onset/Duration: Intermittent, Better Quality of pain: Achy Severity: Moderate Pain Level: 2 Context: Direct blow Recent injury: Yes Associated symptoms: Painful ambulation Exacerbated by: Hanging down, Movement, Walking Relieved by: Nothing - Related Data Allergies/Adverse Reactions: ibuprofen [From Motrin] Allergy (Verified 10/05/18 10:47) sulfamethoxazole [From Bactrim] Allergy (Verified 10/05/18 10:47) trimethoprim [From Bactrim] Allergy (Verified 10/05/18 10:47) Past Medical History - General Information source: Patient - Social History Smoking Status: Never Smoker Frequency of alcohol use: Occasional Drug Abuse: Marijuana Family History: None Patient has homicidal ideation: No - Past Medical History Cardiac Medical History: Reports: Hx Hypertension Pulmonary Medical History: Reports: None EENT Medical History: Reports: None Neurological Medical History: Reports: None Endocrine Medical History: Reports: Hx Diabetes Mellitus Type 2 Renal/ Medical History: Reports: None Malignancy Medical History: Reports None GI Medical History: Reports: None Musculoskeletal Medical History: Reports Hx Musculoskeletal Deformity, Reports Hx Musculoskeletal Trauma Skin Medical History: Reports None Psychiatric Medical History: Reports: None Traumatic Medical History: Reports: None Infectious Medical History: Reports: None Surgical Hx: Negative - Immunizations Immunizations up to date: Yes Hx Diphtheria, Pertussis, Tetanus Vaccination: Yes Physical Exam - Vital signs Vitals: Temp Pulse Resp BP Pulse Ox 98.2 F 76 16 128/69 H 100 11/20/20 09:34 11/20/20 09:34 11/20/20 09:34 11/20/20 09:34 11/20/20 09:34 Course - Re-evaluation Re-evalutation: 11/20/20 22:18 3 was discussed with patient written report given to patient. Patient was discharged home with instruction to follow-up with orthopedic. Patient verbalized understanding and agreement with treatment plan. - Vital Signs Vital signs: Temp Pulse Resp BP Pulse Ox 98.2 F 76 16 128/69 H 100 11/20/20 09:34 11/20/20 09:34 11/20/20 09:34 11/20/20 09:34 11/20/20 09:34 - Laboratory Results Critical Laboratory Results Reviewed: No Critical Results - Radiology Results Critical Radiology Results Reviewed: No Critical Results Procedures - Immobilization Right Knee Time completed: 12:15 Immobilizer type: Crutches, Knee immobilizer Performed by: [facility] Post-Proc Neuro Vasc Exam: Normal Alignment checked and good: Yes Discharge - Discharge Clinical Impression: Contusion of right knee, initial encounter, Knee effusion, right Condition: Stable Disposition: HOME, SELF-CARE Additional Instructions: SUSPECTED INTERNAL KNEE INJURY: The examiner of your injured knee suspects an internal injury to the cartilage or internal ligaments. This must be further investigated by an consumer marketing specialist. The knee should be protected, ice packed, and elevated while awaiting your follow-up exam by the orthopedist. If there is severe swelling, severe pain, or any new symptoms while awaiting your exam, you should call the orthopedist. (If he/she is unavailable, call us or return for re-examination.) Knee Effusion You have a fluid collection in the knee joint, called an effusion. This fluid build up can occur from irritation of the synovial membrane lining the knee joint or from a more serious injury to the knee. Irritation of the membrane can occur from excessive, repetitive knee activitiy, like kneeling or squatting for extended periods or even just excessive walking, jogging, or skiing. Effusions also can occur with infections in the joint and with some arthritic conditions, especially gout. Fluid collections in these situations are usually yellow in color and either clear or cloudy in appearance. Significant injury to the knee can result in fluid collection which is partly or entirely blood and this condition is known as a hemarthrosis of the knee joint. If the fluid collection is not too large and/or painful, it can be managed conservatively with rest, ice packs, and anti-inflammatory and pain medications as needed. If the fluid collection is large and very painful, the knee joint can be drained (aspirated) by a relatively minor procedure of inserting a needle in the joint and removing some or all of the fluid present. If your knee was aspirated, you should rest it as much as possible for a few days, keep a pressure dressing around the knee and apply ice packs for at least 48 - 72 hours. If there are signs of developing infection such as heat and redness of the knee, fever, etc. you should return immediately for a recheck. CONTUSION: Your injury has resulted in a contusion -- a crushing of the deep tissues. No injury to important structures was detected during the physician's exam. Contusions vary in the amount of pain they cause, and in the length of time required for healing. Typically, the area will become bruised, and will remain painful to touch for two or three weeks. However, most patients are back to wo rking and playing within a few days. After the initial period of rest and cold-packs, your symptoms (together with the doctor's recommendations) will determine how rapidly you can get back to full activity. Usually this means "do what feels okay, but don't do things that hurt." If re-examination was recommended, it's important to follow up as instructed. Call the doctor or return any time if pain increases, if swelling becomes severe, if you develop numbness or weakness in an injured extremity, or if any other alarming symptoms occur. Knee Exercise Program It's important to strengthen the muscles around the knee. This protects the injured area and stabilizes a knee that's been loosened by ligament injury. EARLY - Even when motion of the knee is painful (even when wearing a splint), you can begin isometric "quads" exercises. While sitting, hold the knee out, and contract the muscles to stiffen it. It shouldn't be straightened all the way -- stiffen it in a slightly-bent position. Lift the leg and draw a "T" with your foot, up to 100 times. When it becomes easy, add a weight on your foot. LATE - When the doctor advises you, you can begin moving the knee against resistance. The front muscles (quadriceps) are most important. While sitting at a [employer], straighten the knee forcefully while pushing a weight up with your ankle. Start with five to 10 pounds. Do 10 to 20 repetitions, increasing the weight as tolerated. Don't use more weight than is comfortable! Over a few weeks, work up to 35 to 50 pounds. Athletes should try to reach 70 to 90 pounds. Acetaminophen Acetaminophen may be taken for pain relief or fever control. It's much safer than aspirin, offering a wider range of "safe" dosages. It is safe during . Some brand names are Tylenol, Panadol, Datril, Anacin 3, Tempra, and Liquiprin. Acetaminophen can be repeated every four hours. The following are maximum recommended dosages: WEIGHT Dose Drops Elixir Chewable(80mg) (LBS.) drprs=droppers tsp=teaspoon 6 40 mg .4 ml (1/2) 6-11 80 mg .8 ml (full) 1/2 tsp 1 tab 12-16 120 mg 1 1/2 drprs 3/4 tsp 1 1/2 tabs 17-23 160 mg 2 drprs 1 tsp 2 tabs 24-30 240 mg 3 drprs 1 1/2 tsp 3 tabs 30-35 320 mg 2 tsp 4 tabs 36-41 360 mg 2 1/4 tsp 4 1/2 tabs 42-47 400 mg 2 1/2 tsp 5 tabs 48-53 480 mg 3 tsp 6 tabs 54-59 520 mg 3 1/4 tsp 6 1/2 tabs 60-64 560 mg 3 1/2 tsp 7 tabs 65-70 600 mg 3 3/4 tsp 7 1/2 tabs 71-76 640 mg 4 tsp 8 tabs 77-82 720 mg 4 1/2 tsp 9 tabs 83-88 800 mg 5 tsp 10 tabs >89 pounds or adults 650 mg to 900 mg Acetaminophen can be repeated every four hours. Maximum daily dose not to exceed 4000 mg. These maximum recommended dosages are slightly higher than the dosages written on the product container, but these dosages are very safe and well below the toxic dosage for acetaminophen. KNEE IMMOBILIZING SPLINT: The knee immobilizing splint will protect the injury while healing begins. This type of splint does not allow the knee to bend at all. No running or sports will be possible. If the splint allows painfree walking, it's giving adequate protection. If there is still significant pain, crutches may be needed as well. Don't do anything that hurts. Adjusted the splint, if necessary. The stiffeners on the sides are attached with Velcro, so they can be easily moved to adjust for thigh and calf size. If you need help with these adjustments, come back. You will lose muscle strength in the thigh while using this splint. The doctor will advise you if it's safe to do isometric knee exercises while you use it. USE OF CRUTCHES: The doctor has recommended that you not bear weight at this time. You will need to use crutches. Adjust the crutches so the tops come to about two inches under the armpit while you are standing upright. Use your hands -- not your armpits -- to support your weight. To get into a chair, support yourself with one crutch on the injured side. Hold the chair with the other hand, then lower yourself while putting all your weight on the good leg. Going up stairs is `good leg up, step up, then bring up crutches and bad leg.' Down stairs is `bad leg and crutches down, then bring good leg down.' If you develop numbness or swelling in an arm or hand, you are using the crutches incorrectly. Return if you are having any problems with the crutches. ICE & ELEVATION: Apply ice packs frequently against the painful area. Many different schedules are recommended, such as "20 minutes on, 20 minutes off" or "one hour ice, two hours rest." If you need to work, you may need to go longer between ice treatments. You should plan to have the area ice packed AT LEAST one-fourth of the time. The ice should be applied over the wrap, tape, or splint, or over a layer of cloth -- not directly against the skin. Some ice bags have a built-in cloth and can be put directly on the skin. Your injured part should be elevated as much as possible over the next 48 hours. Try to keep the injury above the level of the heart. Avoid use of the injured area. Elevation and rest will decrease the swelling. USE OF [id number] IBUPROFEN: Ibuprofen (Advil, Nuprin, Medipren, Motrin IB) is a medication for fever and pain control. In addition, it has anti- inflammatory effects which may be beneficial, especially in the treatment of injuries. It's best to take ibuprofen with food. Persons with ulcer disease or allergy to aspirin should notify their physician of this before taking ibuprofen. Ibuprofen can be given every four to six hours, for a total of four doses daily. Age Pain or fever dose Antiinflammatory dose 6-8 yr 200 mg (1 tab) 200 mg (1 tab) 9-11 yr 200 mg (1 tab) 200-400 mg (1-2 tab) 11-14 yr 200-400 mg (1-2 tab) 400 mg (2 tab) 15-adult 400 mg (2 tab) 600 mg (3 tab) FOLLOW-UP CARE: If you have been referred to a physician for follow-up care, call the physicians office for an appointment as you were instructed or within the next two days. If you experience worsening or a significant change in your symptoms, notify the physician immediately or return to the Emergency Department at any time for re-evaluation. Forms: Elevated Blood Pressure, Return to Work Referrals: WERTMAN,ETHEL, DO [ACTIVE STAFF] - Follow up as needed
--- NOTE | 2020-11-20 11:27 | RADIOLOGY REPORT (SQ) ---
EXAM DESCRIPTION: KNEE RIGHT 4 VIEWS IMAGES COMPLETED DATE/TIME: 11/20/2020 11:06 am REASON FOR STUDY: pain injury mg tristan COMPARISON: None. NUMBER OF VIEWS: Four views. TECHNIQUE: AP, lateral, and both oblique radiographic images acquired of the right knee. LIMITATIONS: None. FINDINGS: MINERALIZATION: Normal. BONES: No acute fracture or dislocation. No worrisome bone lesions. JOINT: Small effusion. SOFT TISSUES: No soft tissue swelling. No radio-opaque foreign body. OTHER: No other significant finding. IMPRESSION: Trace effusion without other evidence of acute bony abnormality. TECHNICAL DOCUMENTATION: JOB ID: [id number] 2010 [employer]- All Rights Reserved Reading location - IP/workstation name: [email or web address]
== END 2020-11-20 12:11 | disposition home or self-care (01) ==
LOC: ER 09:24
DX: S80.01XA Contusion of right knee, initial encounter (principal); M25.461 Effusion, right knee; W22.8XXA Striking against or struck by other objects, initial encounter; Y92.009 Unspecified place in unspecified non-institutional (private) residence as the place of occurrence of the external cause; E11.9 Type 2 diabetes mellitus without complications; I10 Essential (primary) hypertension
CPT/HCPCS: 99283